=== PATIENT | male | born 1975 | race Caucasian/White ===

== ENCOUNTER 2017-02-04 12:33 | Emergency (ER) | payer OTHER ==
[~2017-02-04] VITALS: Ht 167.6 cm; Wt 90.7 kg
[~2017-02-04 12:33] MED LIST: AUGMENTIN 875875 MG PO; MOTRIN800 MG PO; PERCOCET 325 MG1 TA2 PO
[2017-02-04] MEDS ORDERED: LISINOPRIL10 M1 PO (15:14)
[2017-02-04] MEDS ORDERED: CLONAZEPAM0.5 M2 PO (15:14)
[2017-02-04] MEDS ORDERED: FENOFIBRIC ACID45 M1 PO (15:14)
[2017-02-04] MEDS ORDERED: ATORVASTATIN CA10 M1 PO (15:14)
--- NOTE | 2017-02-04 15:27 | ED CARDIAC/CP/PALPITATIONS ---
History of Present Illness General Chief Complaint: Dyspnea (COPD, CHF, Other) Stated Complaint: C/P SOB Source: patient Exam Limitations: no limitations Vital Signs & Intake/Output Vital Signs & Intake/Output Vital Signs Date Time Temp Pulse Resp B/P B/P Pulse O2 O2 Flow FiO2 Mean Ox Delivery Rate 02/04 1946 96.8 92 16 128/81 95 Room Air 02/04 1655 96.4 92 18 133/72 96 Room Air 02/04 1514 99 02/04 1446 95 18 121/84 99 Room Air 02/04 1247 97.4 100 18 124/86 18 Room Air ED Intake and Output 02/05 0000 02/04 1200 Intake Total Output Total Balance Patient 200 lb Weight Allergies Coded Allergies: NO KNOWN ALLERGIES (09/05/14) Triage Note: PT STATES THAT HE STARTED HAVING MID CP NON RADIATING YESTERDAY AND PAIN IS NOW INCREASING. ALSO COMPLAINS OF FEELING SOB, O2 SAT 98 % ON RA. PT ALSO STATES THAT HE STARTED WITH A COUGH ABOUT 5 DAYS, NON PRODUCTIVE Triage Nurses Notes Reviewed? yes HPI: This patient is a 42-year-old male with a past medical history include hypertension who presented to the emergency department today for evaluation of chest pressure. The patient reported that 5-7 days ago he developed a dry cough. He reported that yesterday he started to feel some chest tightness and chest pressure in the center of his chest. He reported that it seemed to go away on its own. However, today for about an hour he had several seconds of midsternal chest pain with associated pressure every 5-10 seconds. He reported that now the pain feels a little bit lower in his chest, is still nonradiating, and is currently constant. No palliative or provoking factors. The patient reported that he does feel anxious. He denied any nausea, vomiting, abdominal pain, headaches, visual changes, jaw pain, arm pain, or numbness and tingling in his extremities. He reported that he did have chest pain in the past for which she was not evaluated for. (ASAEL VALENZUELA,JOSE) Reconcile Medications Atorvastatin Calcium 10 MG TABLET 1 TAB PO DAILY HPL (Reported) Clonazepam 0.5 MG TABLET 1 TAB PO BIDP PRN ANXIETY (Reported) Fenofibric Acid (Choline) (Fenofibric Acid) 45 MG CAPSULE.DR 1 TAB PO DAILY HPL (Reported) Guaifenesin/D-Methorphan Hb/PE (Tussin Cf Cough & Cold Liq) 100 MG-10 MG-5 MG/5 ML LIQUID 1 TSP PO BID PRN COUGH Lisinopril 10 MG TABLET 1 TAB PO DAILY HTN (Reported) (CARMITA MENON,EDILSON Jackson) Past History Travel History Traveled to [place] past 21 day No Medical History Any Pertinent Medical History? see below for history Neurological: NONE EENT: NONE Cardiovascular: hypertension, hyperlipidemia Respiratory: NONE Gastrointestinal: NONE Hepatic: NONE Renal: NONE Musculoskeletal: NONE Psychiatric: anxiety, depression Endocrine: NONE Blood Disorders: NONE Cancer(s): NONE TELEMARKETER SUPERVISOR/Reproductive: NONE Surgical History Surgical History: non-contributory Psychosocial History What is your primary language Arabic Tobacco Use: Never used ETOH Use: denies use Illicit Drug Use: denies illicit drug use Family History Family History, If Any: Relation not specified for: Abdominal aortic aneurysm (AAA) Hx Contributory? Yes (JOSE VYAS PA-C) Review of Systems Review of Systems Constitutional: Reports: no symptoms. EENTM: Reports: no symptoms. Respiratory: Reports: no symptoms. Cardiovascular: Reports: see HPI. GI: Reports: no symptoms. Genitourinary: Reports: no symptoms. Musculoskeletal: Reports: no symptoms. Skin: Reports: no symptoms. Neurological/Psychological: Reports: no symptoms. All Other Systems: Reviewed and Negative (JOSE VYAS PA-C) Physical Exam Physical Exam Cardiovascular: regular rate/rhythm, normal peripheral pulses, NO MURMURS, RUBS, GALLOPS. nO jvd OR CAROTID BRUITS Comments: Well-developed well-nourished person in no acute distress HEENT: Normal EENT exam, head normocephalic, moist mucous membranes PERRLA bilaterally Neck: Supple, no lymphadenopathy Back: Normal gait Respiratory: Tenderness to palpation over the sternum. No respiratory distress. Speaking in full sentences. Lungs clear to auscultation bilaterally with no wheezes, rales, rhonchi Abdomen: Soft, nontender and nondistended. No rebound or guarding. No McBurney 's point tenderness. Negative Crawford sign. Negative Rovsing sign Extremity: Normal and equal pulses. Capillary refill less than 2 seconds Neuro: Alert oriented x3, cranial nerves II through XII grossly intact. Skin: No appreciable rash on exposed skin, skin is warm and dry. Psych: Mood and affect is normal Core Measures ACS in differential dx? Yes Severe Sepsis Present: No Septic Shock Present: No (JOSE VYAS PA-C) Progress Differential Diagnosis: AMI, aortic dissection, atrial fibrillation, cholecystitis, costochondritis, hyperkalemia, hyperthyroid, myocarditis, pancreatitis, pericarditis, pneumonia, PSVT, pulmonary embolism, PUD/GERD, PVCs/ PACs, unstable angina Plan of Care: Orders Procedure Date/time Status Heart Healthy Diet 02/05 B Active TROPONIN LEVEL 02/04 193 Complete EKG 02/04 1930 Active TSH REFLEX 02/04 1530 Complete TROPONIN LEVEL 02/04 1500 Complete MAGNESIUM 02/04 1500 Complete D-DIMER 02/04 1500 Complete COMPREHENSIVE METABOLIC PANEL 02/04 1500 Complete CBC WITHOUT DIFFERENTIAL 02/04 1500 Complete B-TYPE NATRIURETIC PEP (BNP) 02/04 1500 Complete EKG 02/04 1238 Active Laboratory Tests 02/04/17 1935: Troponin I < 0.01 02/04/17 1530: Anion Gap 13, Estimated GFR > 60, BUN/Creatinine Ratio 13.1, Glucose 86, Calcium 10.2, Magnesium 2.0, Total Bilirubin 0.7, AST 26, ALT 37, Alkaline Phosphatase 62, Troponin I < 0.01, Zri-N-Wnmbvrmhgko Pept 17.9, Total Protein 7.6, Albumin 4.7, Globulin 2.9, Albumin/Globulin Ratio 1.6, TSH &T3 &Free T4 Intrp 2.390, D- Dimer < 200, CBC w Diff NO MAN DIFF REQ, RBC 5.05, MCV 88.9, MCH 30.3, RDW 12.7, MPV 7.4, Gran % 78.0 H, Lymphocytes % 10.3 L, Monocytes % 9.2, Eosinophils % 2.1, Basophils % 0.4, Absolute Granulocytes 5.6, Absolute Lymphocytes 0.7 L, Absolute Monocytes 0.7 H, Absolute Eosinophils 0.2, Absolute Basophils 0, PUBS MCHC 34.1 02/04/17 1527: Free T4 Cancelled, TSH &T3 &Free T4 Intrp Cancelled Diagnostic Imaging: Viewed by Me: Radiology Read. Discussed w/RAD: Radiology Read. Radiology Impression: PATIENT: MELONY MILLAN PRESENT AGE: 42 PATIENT ACCOUNT NO: [id number] : 76 LOCATION: [facility] ORDERING PHYSICIAN: JOSE VYAS PA-C SERVICE DATE: 02/04/17 EXAM TYPE: RAD - XRY-CHEST XRAY, PA AND LATERAL EXAMINATION: XR CHEST CLINICAL INFORMATION: Chest pain and shortness of breath. COMPARISON: None TECHNIQUE: 2 views of the chest were obtained. FINDINGS: Lungs are clear and trachea midline in position. No pulmonary edema, pleural effusion or pneumothorax. Cardiac silhouette is normal in size. Mediastinal and hilar contours are normal. Bones are unremarkable. IMPRESSION: No acute cardiopulmonary disease. DICTATED BY: MITCHELL MCKENZIE MD DATE/TIME DICTATED:02/04/171639 BILINGUAL CUSTOMER SERVICE SPECIALIST:HERMELINDA DATE/TIME TRANSCRIBED:02/04/171639 CONFIDENTIAL, DO NOT COPY WITHOUT APPROPRIATE AUTHORIZATION. <Electronically signed in Other Vendor System> SIGNED BY: MITCHELL MCKENZIE MD 02/04/17 1646 Initial ED EKG: normal axis, normal intervals, normal p-waves, normal QRS complex, normal sinus rhythm, no ST T wave changes, 100 BPM, SINUS TACHYCARDIA Repeat EKG: unchanged (94 bpm) (JOSE VYAS PA-C) Departure Departure Disposition: HOME OR SELF CARE Condition: Stable Clinical Impression Primary Impression: Chest pain Qualifiers: Chest pain type: unspecified Qualified Code: R07.9 - Chest pain, unspecified Referrals: She CRUZ MD, MD,Alejandra THOMAS (PCP/Family) Additional Instructions: Follow-up with the front end mechanic whose information has been provided to you in this packet. Please also follow-up with your primary care physician. Return for any worsening symptoms or concerns. Departure Forms: Customer Survey General Discharge Information Prescriptions: Current Visit Scripts Guaifenesin/D-Methorphan Hb/PE (Tussin Cf Cough & Cold Liq) 1 TSP PO BID PRN COUGH #100 ML (AASEL VALENZUELA,JOSE) PA/PICKLING SOLUTION MAKER Co-Sign Statement Statement: ED Attending supervision documentation- [] I saw and evaluated the patient. I have also reviewed all the pertinent lab results and diagnostic results. I agree with the findings and the plan of care as documented in the PA's/PICKLING SOLUTION MAKER's documentation. [x] I have reviewed the ED Record and agree with the PA's/PICKLING SOLUTION MAKER's documentation. [] Additions or exceptions (if any) to the PAs/PICKLING SOLUTION MAKER's note and plan are summarized below: [] (CARMITA MENON,EDILSON Jackson) Critical Care Note Critical Care Note Critical Care Time: non-applicable (ASAEL VALENZUELA,JOSE)
[2017-02-04 16:15] LABS: ABSOLUTE BASOPHIL COUNT 0 /CUMM (0.0-0.2); ABSOLUTE EOSINOPHIL COUNT 0.2 /CUMM (0.0-0.7); ABSOLUTE GRANULOCYTE CT 5.6 /CUMM (1.4-6.5); ABSOLUTE LYMPH COUNT 0.7 /CUMM (1.2-3.4); ABSOLUTE MONOCYTE COUNT 0.7 /CUMM (0.10-0.60); BASOPHIL % 0.4 % (0.0-2.0); EOSINOPHIL % 2.1 % (0-5); HEMATOCRIT 44.9 % (42-52); MEAN CORPUSCULAR HGB 30.3 PG (27.0-31.0); MEAN CORPUSCULAR HGB CONC 34.1 G/DL (33.0-37.0); MEAN CORPUSCULAR VOLUME 88.9 FL (80.0-94.0); MEAN PLATELET VOLUME 7.4 FL (7.4-10.4); PLATELET COUNT 284 /CUMM (130-400); RBC DISTRIBUTION WIDTH 12.7 % (11.5-14.5); RED BLOOD CELL CT 5.05 /CUMM (4.70-6.10); WHITE BLOOD CELL COUNT 7.1 /CUMM (4.8-10.8)
--- NOTE | 2017-02-04 16:46 | RADIOLOGY REPORT ---
EXAMINATION: XR CHEST CLINICAL INFORMATION: Chest pain and shortness of breath. COMPARISON: None TECHNIQUE: 2 views of the chest were obtained. FINDINGS: Lungs are clear and trachea midline in position. No pulmonary edema, pleural effusion or pneumothorax. Cardiac silhouette is normal in size. Mediastinal and hilar contours are normal. Bones are unremarkable. IMPRESSION: No acute cardiopulmonary disease.
[2017-02-04 19:46] VITALS: BP 128/81
[2017-02-04] MEDS ORDERED: TUSSIN CF COUG118 M1 PO (20:33)
== END 2017-02-04 20:44 ==
LOC: ERH 12:33
PROVIDERS: Physician Assistant
DX: R07.9 Chest pain, unspecified (principal)
CPT/HCPCS: 93005; 93010